=== PATIENT | female | born 1975 | race Two or more races ===

== ENCOUNTER 2023-12-26 18:34 | Emergency (ER) | payer OTHER ==
[~2023-12-26] VITALS: Ht 149.9 cm; Wt 64.0 kg
[2023-12-26 19:01] VITALS: TEMP 98
[2023-12-26] MEDS ORDERED: ONDANSETRON HCL/PF 4 MG/2 ML VIAL ONE (21:00)
[2023-12-26] MEDS ORDERED: MORPHINE SULFATE INJ 4 MG/ML DISP.SYRIN ONE (21:00)
[2023-12-26 21:04] LABS: BASOPHILS # (AUTO) 0.1 K/uL (0.0-0.2); BASOPHILS % (AUTO) 0.4 % (0.0-2.0); EOSINOPHILS % (AUTO) 0.1 % (0.0-6.0); HEMATOCRIT 40 % (33-45); HEMOGLOBIN 13.3 g/dL (11.5-14.8); LYMPHOCYTES # (AUTO) 1.2 K/uL (0.8-4.8); MEAN CORPUSCULAR HEMOGLOBIN 29 PG (26.0-33.0); MEAN CORPUSCULAR HGB CONC 33 g/dl (31.0-36.0); MEAN CORPUSCULAR VOLUME 88 fL (82-100); MONOCYTES # (AUTO) 0.4 K/uL (0.1-1.30); MONOCYTES % (AUTO) 2.9 % (2.0-12.0); NEUTROPHILS # (AUTO) 11.3 K/uL (1.8-8.9); NEUTROPHILS % (AUTO) 87.6 % (43.0-81.0); PLATELET COUNT (AUTO) 295 K/uL (150-450); RED BLOOD CELL COUNT(AUTO) 4.55 MIL/uL (4.0-5.2); RED CELL DISTRIBUTION WIDTH 13.1 % (11.5-15.0); WHITE BLOOD COUNT (AUTO) 12.8 K/uL (4.3-11.0)
[2023-12-26] MEDS: IV NS 0.9% 1,000 ML BAG IV ONE (21:05)
[2023-12-26] MEDS: MORPHINE SULFATE INJ 2 MG/ML DISP.SYRIN IV ONE (21:05)
[2023-12-26] MEDS: ONDANSETRON HCL/PF 4 MG/2 ML VIAL IVP ONE (21:05)
[2023-12-26 21:13] LABS: BILIRUBIN,DIRECT 0.2 mg/dL (0.0-0.2); BILIRUBIN,TOTAL 0.7 mg/dL (0.2-1.0); CALCIUM, SERUM 9.3 mg/dL (8.5-10.1); CREATININE 0.6 mg/dL (0.6-1.3)
[2023-12-26 21:19] LABS: APPEARANCE,URINE Clear (CLEAR); BILIRUBIN,URINE Negative (NEGATIVE); BLOOD, URINE Trace-lysed Ery/uL (NEGATIVE); COLOR,URINE YELLOW (YELLOW); KETONES,URINE 15 mg/dL (NEGATIVE); LEUKOCYTE ESTERASE ,URINE Negative (NEGATIVE); NITRITE, URINE Negative (NEGATIVE); PH,URINE 5.5 (5.0-8.0); PROTEIN,URINE Negative (NEGATIVE); UGLUCOSE Negative (NEGATIVE); UROBILINOGEN,URINE 0.2 EU/dL (0.2)
[2023-12-26 21:20] LABS: PREGNANCY TEST URINE QUAL NEGATIVE (NEGATIVE)
[2023-12-26] MEDS ORDERED: FAMO20TA80 PO (22:30)
[2023-12-26] MEDS ORDERED: ONDA4TAB11 PO (22:30)
[2023-12-26] MEDS ORDERED: DICY10CA37 PO (22:30)
[2023-12-26] MEDS ORDERED: FAMOTIDINE (20 MG) 20 MG TABLET ONE (22:35)
[2023-12-26] MEDS ORDERED: MECL-159 PO (22:35)
[2023-12-26] MEDS: FAMOTIDINE (20 MG) 20 MG TABLET PO ONE (22:44)
[2023-12-26] MEDS ORDERED: ONDANSETRON 4 MG TAB.RAPDIS ONE (22:46)
[2023-12-26] MEDS: ONDANSETRON 4 MG TAB.RAPDIS SL ONE (22:48)
[2023-12-26 23:17] VITALS: BP 124/81; O2SAT 98
== END 2023-12-26 23:18 | disposition home or self-care (01) ==
LOC: ER 18:47
DX: R10.84 Generalized abdominal pain (principal); R11.2 Nausea with vomiting, unspecified; R10.2 Pelvic and perineal pain
CPT/HCPCS: 99285; 74176; 96374; 76705; 96361; 96375; 85025; 80048; 83690; 80076; 84703; 81003; 36415; J2270; J2405; J7030; Q0162